=== PATIENT | female | born 1950 | race Caucasian/White ===

== ENCOUNTER → 2017-08-24 | Outpatient (CLI) | payer MEDICARE, OTHER ==
[~2017-08-24] MED LIST: AUGMENTIN875 MG PO; ELAVIL25 MG PO; PRAVACHOL40 MG PO; PRILOSEC20 MG PO; TYLENOL WITH C1 EACH PO
== END | disposition home or self-care (01) ==
LOC: CDC 12:00
DX: Z01.810 Encounter for preprocedural cardiovascular examination (principal); E78.00 Pure hypercholesterolemia, unspecified
CPT/HCPCS: 93000

== ENCOUNTER 2017-08-29 03:54 | Inpatient (IN) | payer OTHER ==
[~2017-08-29] VITALS: Ht 149.9 cm; Wt 59.8 kg
[2017-08-29 11:21] VITALS: BP 128/60
[2017-08-29 17:43] VITALS: BP 167/71
[2017-08-29 19:16] VITALS: BP 138/70
[2017-08-29 20:10] LABS: HEMATOCRIT 38.7 % (36.0-46.0); MCH 28.9 PG (29.0-34.0); MCHC 33.1 G/DL (30.0-36.0); MCV 87.4 FL (83-99); MEAN PLAT.VOLUME 10.2 uM^3 (9.5-12.4); PLATELET COUNT 312 K/uL (156-360); RBC DIS.WIDTH-CV 12.4 % (11.8-14.6); RBC DIS.WIDTH-SD 40.3 % (39-53); RED BLOOD COUNT 4.43 M/uL (3.80-5.20); WHITE BLOOD COUNT 13.9 K/uL (4.1-10.2)
[2017-08-29 20:35] LABS: ANION GAP 9 MEQ/L (2-14); CHLORIDE 105 MEQ/L (99-109); GFR ESTIMATE (CALCULATED) > 59 mL/min/; GLUCOSE 230 mg/dL (70-99); SAMPLE HEMOLYSIS CHECK 0; SAMPLE ICTERIC CHECK 0; SAMPLE LIPEMIA CHECK 0; SODIUM 136 MEQ/L (136-147); UREA NITROGEN (BUN) 9 mg/dL (9-23)
[2017-08-29 20:40] LABS: POTASSIUM 3.3 MEQ/L (3.7-5.4)
[2017-08-29 23:44] VITALS: BP 148/70
[2017-08-30 03:54] VITALS: BP 122/63
[2017-08-30 07:00] LABS: HEMATOCRIT 36.9 % (36.0-46.0); MCH 29.2 PG (29.0-34.0); MCHC 33.1 G/DL (30.0-36.0); MCV 88.3 FL (83-99); MEAN PLAT.VOLUME 10.1 uM^3 (9.5-12.4); PLATELET COUNT 284 K/uL (156-360); RBC DIS.WIDTH-CV 12.4 % (11.8-14.6); RBC DIS.WIDTH-SD 40.6 % (39-53); RED BLOOD COUNT 4.18 M/uL (3.80-5.20); WHITE BLOOD COUNT 14.2 K/uL (4.1-10.2)
[2017-08-30 07:21] LABS: ANION GAP 8 MEQ/L (2-14); CHLORIDE 104 MEQ/L (99-109); GFR ESTIMATE (CALCULATED) > 59 mL/min/; GLUCOSE 169 mg/dL (70-99); SAMPLE HEMOLYSIS CHECK 0; SAMPLE ICTERIC CHECK 0; SAMPLE LIPEMIA CHECK 0; SODIUM 134 MEQ/L (136-147); UREA NITROGEN (BUN) 6 mg/dL (9-23)
[2017-08-30 07:35] VITALS: BP 149/67
[2017-08-30 07:35] LABS: POTASSIUM 4.1 MEQ/L (3.7-5.4)
[2017-08-30 15:34] VITALS: BP 127/60
[2017-08-30 20:05] VITALS: BP 185/73
[2017-08-30 23:24] VITALS: BP 174/79
[2017-08-31 03:15] VITALS: BP 150/67
[2017-08-31 06:50] LABS: HEMATOCRIT 37.4 % (36.0-46.0); MCH 28.8 PG (29.0-34.0); MCHC 32.9 G/DL (30.0-36.0); MCV 87.6 FL (83-99); PLATELET COUNT 258 K/uL (156-360); RBC DIS.WIDTH-CV 12.9 % (11.8-14.6); RBC DIS.WIDTH-SD 40.9 % (39-53); RED BLOOD COUNT 4.27 M/uL (3.80-5.20); WHITE BLOOD COUNT 14.3 K/uL (4.1-10.2)
[2017-08-31 07:14] LABS: ANION GAP 9 MEQ/L (2-14); CHLORIDE 108 MEQ/L (99-109); GFR ESTIMATE (CALCULATED) 53 mL/min/; POTASSIUM 4.5 MEQ/L (3.7-5.4); SAMPLE HEMOLYSIS CHECK 3; SAMPLE ICTERIC CHECK 0; SAMPLE LIPEMIA CHECK 0; SODIUM 139 MEQ/L (136-147); UREA NITROGEN (BUN) 10 mg/dL (9-23)
[2017-08-31 07:17] LABS: GLUCOSE 111 mg/dL (70-99)
[2017-08-31 07:47] VITALS: BP 154/70
[2017-08-31 13:00] VITALS: BP 152/70
[2017-08-31] MEDS ORDERED: TRAMADOL HCL50 MG PO (14:41)
== END 2017-08-31 15:36 | disposition home or self-care (01) | DRG 743 ==
LOC: ENRESERV 03:54 → 2SOUTH 08:55 → 2EAST 10:31 → 2SOUTH 10:31 → ENRESERV 16:00 → 2EAST 17:36
PROVIDERS: Obstetrics & Gynecology Gynecologic Oncology
DX: D27.1 Benign neoplasm of left ovary (principal); N80.0 Endometriosis of uterus
CPT/HCPCS: 36415; 80048; 85027; 86850; 86900; 86901; 86920; 88108; 88305; 88307; 88331; 90686; C1758; J0131; J0330; J0690; J1100; J1170; J1650; J1885; J2250; J2405; J2710; J2765; J3010; J3480